=== PATIENT | female | born 1975 | race Two or more races ===

== ENCOUNTER 2018-04-23 04:36 | Emergency (ER) | payer SELFPAY ==
[~2018-04-23] VITALS: Ht 170.2 cm; Wt 95.3 kg
[2018-04-23 04:47] VITALS: BP 129/85
[2018-04-23] MEDS ORDERED: HYDROcodone-ACET 5/325MG TAB PO ONE (05:00)
[2018-04-23] MEDS ORDERED: PANTOPRAZOLE 40 MG/10 ML VIAL IV ONE (09:45)
== END 2018-04-23 09:40 | disposition home or self-care (01) ==
LOC: EDBD 04:36 → ER 04:40
DX: O20.9 Hemorrhage in early pregnancy, unspecified (principal); Z3A.01 Less than 8 weeks gestation of pregnancy